=== PATIENT | female | born 1990 ===

== ENCOUNTER 2016-09-09 18:14 | Emergency (ER) | payer MEDICAID ==
[2016-09-09 18:14] VITALS: BMI 24.2
[2016-09-09 18:21] VITALS: BP 114/75; PULSE 82; TEMP 98.5; O2SAT 100
[2016-09-09] MEDS ORDERED: Albuterol-Ipratrop 3 mg / 0.5 (3 ml) UD IH STA (19:19)
[2016-09-09] MEDS ORDERED: Albuterol-Ipratrop 3 mg / 0.5 (3 ml) UD ONE (19:21)
--- NOTE | 2016-09-09 21:15 | C.PDOC ---
History Of Present Illness The patient, a 26 y/o female whose PMHx includes Lupus, presents to the ED for evaluation of cough and wheezing which began around 1 week ago. Patient states she has been diagnosed with Bronchitis for the third time this year. Patient states she is not taking any steroids or antibiotics at this time. Otherwise, she denies fever, chills, chest pain, and shortness of breath. Time Seen by Provider: 09/09/16 18:50 Chief Complaint (Nursing): Shortness Of Breath History Per: Patient History/Exam Limitations: no limitations Onset/Duration Of Symptoms: Other (1 week ) Current Symptoms Are (Timing): Still Present Quality: denies: "Pain" Exacerbating Factor(s): Coughing Current Respiratory Medications: See Home Med List Associated Symptoms: denies: Fever, Chills, Chest Pain Additional History Per: Patient Past Medical History Reviewed: Historical Data, Nursing Documentation, Vital Signs Vital Signs: Last Vital Signs Temp 98.5 F 09/09/16 18:19 Pulse 82 09/09/16 18:19 Resp 20 09/09/16 21:19 BP 114/75 09/09/16 18:19 Pulse Ox 100 09/09/16 21:15 - Medical History PMH: Bronchitis, Rheumatoid Arthritis Surgical History: Family History: States: No Known Family Hx - Social History Hx Tobacco Use: Yes Hx Alcohol Use: Yes (social) Hx Substance Use: No - Immunization History Hx Tetanus Toxoid Vaccination: No Hx Influenza Vaccination: No Hx Pneumococcal Vaccination: No Review Of Systems Except As Marked, All Systems Reviewed And Found Negative. Constitutional: Negative for: Fever, Chills Cardiovascular: Negative for: Chest Pain Respiratory: Positive for: Cough, Wheezing. Negative for: Shortness of Breath Physical Exam - Physical Exam Appears: Non-toxic, No Acute Distress Skin: Normal Color, Warm, Dry Head: Atraumatic, Normacephalic Eye(s): bilateral: Normal Inspection Ear(s): Bilateral: Normal Nose: Normal, No Discharge Oral Mucosa: Moist Throat: Normal, No Erythema, No Exudate Neck: Normal ROM, Supple Chest: Symmetrical, No Deformity, No Tenderness Cardiovascular: Rhythm Regular, No Murmur Respiratory: No Rales, No Rhonchi, Wheezing Back: Normal Inspection, No Vertebral Tenderness, No Paraspinal Tenderness Extremity: Normal ROM, Capillary Refill (less than 2 seconds ) Neurological/Psych: Oriented x3, Normal Speech, Normal Cognition Gait: Steady ED Course And Treatment O2 Sat by Pulse Oximetry: 100 (on RA) Pulse Ox Interpretation: Normal Progress Note: CXR ordered, results are unremarkable. Patient received Albuterol IH and prednisone PO. On reassessment, patient is resting comfortably , showing no signs of respiratory distress, and is stable for discharge. Patient is advised to follow up with PMD within 1-2 days for further evaluation. Reassessment Condition: Improved Disposition - Disposition Disposition: HOME/ ROUTINE Disposition Time: 21:12 Condition: GOOD Additional Instructions: Follow up with PMD within 1-2 days. Return to ED if feel worse. Prescriptions: Albuterol 0.083% [Albuterol Sulfate 3 Ml] 3 ml IH .Q4-6H #100 vial Levofloxacin [Levaquin] 500 mg PO DAILY #10 tablet predniSONE [predniSONE Tab] 2 tab PO DAILY #8 tab Promethazine HCl/Codeine [Prometh-Codein 6.25-10 mg/5 ml] 5 ml PO .Q4-6H #150 ml Albuterol HFA [Ventolin HFA 90 mcg/actuation (8 g)] 1 puff IH .Q4-6H #1 inhaler Instructions: Acute Bronchitis (ED) - Clinical Impression Clinical Impression: Bronchitis - PA / SPECIAL EVENTS DIRECTOR / Resident Statement MD/DO has reviewed & agrees with the documentation as recorded. - Scribe Statement The provider has reviewed the documentation as recorded by the Scribe (Taryn Waggoner) All medical record entries made by the Scribe were at my direction and personally dictated by me. I have reviewed the chart and agree that the record accurately reflects my personal performance of the history, physical exam, medical decision making, and the department course for this patient. I have also personally directed, reviewed, and agree with the discharge instructions and disposition.
[2016-09-09 21:20] VITALS: RESP 20
--- NOTE | 2016-09-10 09:23 | RAD ---
HISTORY: cough/wheezing COMPARISON: 03/26/2016 TECHNIQUE: Chest PA and lateral FINDINGS: LUNGS: No active pulmonary disease. PLEURA: No significant pleural effusion identified. No pneumothorax apparent. CARDIOVASCULAR: Normal. OSSEOUS STRUCTURES: No significant abnormalities. VISUALIZED UPPER ABDOMEN: Normal. OTHER FINDINGS: None. IMPRESSION: No active disease.
== END 2016-09-09 21:19 | disposition home or self-care (01) ==
LOC: C.ER 18:14
DX: J40 Bronchitis, not specified as acute or chronic (principal); Z72.0 Tobacco use

== ENCOUNTER 2017-05-27 11:05 | Emergency (ER) | payer MEDICAID ==
[2017-05-27 11:13] VITALS: BMI 24.4
[2017-05-27 11:18] VITALS: BP 101/65; PULSE 120; RESP 20; TEMP 98.5; O2SAT 98
[2017-05-27] MEDS ORDERED: guaiFENesin 100 mg/5 ml Syrup UD PO STA (11:44)
--- NOTE | 2017-05-27 11:46 | C.PDOC ---
History Of Present Illness 27 year old female presents to the ED for evaluation of sore throat and a dry, nonproductive cough which began yesterday. Patient has been taking DayQuil and NyQuil. She reports many sick contacts at home and denies fever, chills. Time Seen by Provider: 05/27/17 11:38 Chief Complaint (Nursing): Flu-like Symptoms History Per: Patient History/Exam Limitations: no limitations Onset/Duration Of Symptoms: Hrs Current Symptoms Are (Timing): Still Present Location Of Pain: Throat Associated Symptoms: Sore Throat, Cough. denies: Fever, Chills, Sputum Ear Symptoms: Bilateral: None Additional History Per: Patient Past Medical History Reviewed: Historical Data, Nursing Documentation, Vital Signs Vital Signs: Last Vital Signs Temp 98.5 F 05/27/17 11:13 Pulse 120 H 05/27/17 11:13 Resp 20 05/27/17 11:13 BP 101/65 05/27/17 11:13 Pulse Ox 98 05/27/17 15:54 - Medical History PMH: Bronchitis, Rheumatoid Arthritis Surgical History: Family History: States: Unknown Family Hx - Social History Hx Tobacco Use: Yes Hx Alcohol Use: Yes (social) Hx Substance Use: No - Immunization History Hx Tetanus Toxoid Vaccination: No Hx Influenza Vaccination: No Hx Pneumococcal Vaccination: No Review Of Systems Constitutional: Negative for: Fever, Chills ENT: Positive for: Throat Pain Respiratory: Positive for: Cough. Negative for: Sputum Physical Exam - Physical Exam Appears: Non-toxic, No Acute Distress Skin: Normal Color, Warm, Dry Head: Atraumatic, Normacephalic Eye(s): bilateral: Normal Inspection Ear(s): Bilateral: Normal Nose: Normal, No Discharge Oral Mucosa: Moist Throat: Normal, No Erythema, No Exudate Neck: Supple Chest: Symmetrical, No Deformity, No Tenderness Cardiovascular: Rhythm Regular, No Murmur Respiratory: Normal Breath Sounds, No Rales, No Rhonchi, No Wheezing Extremity: Normal ROM, Capillary Refill (less than 2 seconds ) Neurological/Psych: Oriented x3, Normal Speech, Normal Cognition Gait: Steady ED Course And Treatment - Laboratory Results Lab Interpretation: Normal (flu swab neg.) O2 Sat by Pulse Oximetry: 98 (on RA) Pulse Ox Interpretation: Normal Progress Note: motrin, robitussin PO. Flu swab ordered and resulted negative. Reevaluation Time: 12:45 Reassessment Condition: Improved Medical Decision Making Medical Decision Making: viral syndrome, clear lungs swab neg. no coughing in ED Disposition Doctor Will See Patient In The: Office Counseled Patient/Family Regarding: Studies Performed, Diagnosis - Disposition [facility]Outside[facility] Disposition: HOME/ ROUTINE Disposition Time: 11:45 Condition: GOOD Additional Instructions: continue dayquil/Nyquil agressively drink plenty of fluids no work/school until afebrile for 24 hours Instructions: Viral Syndrome (ED) Forms: [facility] (Turkish), Work Excuse - Clinical Impression Clinical Impression: Influenza-like illness - Scribe Statement The provider has reviewed the documentation as recorded by the Scribe (Taryn Waggoner) Provider Attestation: All medical record entries made by the Scribe were at my direction and personally dictated by me. I have reviewed the chart and agree that the record accurately reflects my personal performance of the history, physical exam, medical decision making, and the department course for this patient. I have also personally directed, reviewed, and agree with the discharge instructions and disposition.
[2017-05-27] MEDS ORDERED: guaiFENesin 100 mg/5 ml Syrup UD ONE (11:53)
== END 2017-05-27 13:17 | disposition home or self-care (01) ==
LOC: C.ER 11:05
DX: J11.1 Influenza due to unidentified influenza virus with other respiratory manifestations (principal); F17.210 Nicotine dependence, cigarettes, uncomplicated

== ENCOUNTER 2018-02-05 11:39 | Emergency (ER) | payer MEDICAID ==
[2018-02-05 11:39] VITALS: BMI 24.4
[2018-02-05 11:58] VITALS: PULSE 85; O2SAT 99
--- NOTE | 2018-02-05 12:53 | RAD ---
Date of service: 02/05/2018 HISTORY: Chest pain - especially with deep inspiration COMPARISON: Comparison chest 09/09/2017 TECHNIQUE: Chest PA and lateral FINDINGS: LUNGS: No active pulmonary disease. PLEURA: No significant pleural effusion identified. No pneumothorax apparent. CARDIOVASCULAR: Normal. OSSEOUS STRUCTURES: No significant abnormalities. VISUALIZED UPPER ABDOMEN: Normal. OTHER FINDINGS: None. IMPRESSION: No active disease.
[2018-02-05 12:58] LABS: BASO % 0.4 % (0.0-2.0); EOS # 0.1 K/uL (0.0-0.7); EOS % 0.7 % (0.0-4.0); HEMOGLOBIN 12.2 g/dL (11.0-16.0); LYMPH % 9.2 % (20.0-40.0); MEAN CELL VOLUME 82.2 fL (81.0-99.0); MEAN CORPUSCULAR HEMOGLOBIN 27.3 pg (27.0-31.0); MEAN CORPUSCULAR HGB CONC 33.2 g/dL (33.0-37.0); MEAN PLATELET VOLUME 8.9 fL (7.2-11.7); MONO # 0.6 K/uL (0.0-0.8); NEUT % 83.7 % (50.0-75.0); PLATELET COUNT 268 K/uL (130-400); RBC 4.47 Mil/uL (3.80-5.20); RED CELL DISTRIBUTION WIDTH 14.1 % (11.5-14.5); WHITE BLOOD COUNT 10.7 K/uL (4.8-10.8)
--- NOTE | 2018-02-05 13:00 | C.PDOC ---
History Of Present Illness 27 year old female with hx of lupus presents to ED complaining of left sided chest pain that radiates to the her neck. Patient states pain is constant and describes it as tightness and burning. Patient reports the pain is exacerbated when she is sitting up, takes deep breaths, and leans forward. Patient reports having similar symptoms prior, but last week the pain worsened. Patient has never seen a doctor for this and states she took naproxen with no relief of symptoms. Patient also reports taking plaquenil for her lupus. Patient also reports having recurrent episodes of bronchitis and has had a tubal ligation. Patient reports she smokes cigarettes and drinks on occasion. Denies fever, cough, shortness of breath, nausea, vomiting, weakness, numbness. PMD: [facility] Time Seen by Provider: 02/05/18 12:04 Chief Complaint (Nursing): ENT Problem History Per: Patient History/Exam Limitations: None Onset/Duration Of Symptoms: Days Current Symptoms Are (Timing): Still Present Past Medical History Reviewed: Historical Data, Nursing Documentation, Vital Signs Vital Signs: Last Vital Signs Temp 98.5 F 02/05/18 11:54 Pulse 85 02/05/18 11:54 Resp 16 02/05/18 11:54 BP 112/66 02/05/18 11:54 Pulse Ox 99 02/05/18 11:54 - Medical History PMH: Bronchitis, Rheumatoid Arthritis Surgical History: No Surg Hx, Family History: States: No Known Family Hx - Social History Hx Tobacco Use: Yes Hx Alcohol Use: Yes (social) Hx Substance Use: No - Immunization History Hx Tetanus Toxoid Vaccination: No Hx Influenza Vaccination: No Hx Pneumococcal Vaccination: No Review Of Systems Except As Marked, All Systems Reviewed And Found Negative. Constitutional: Negative for: Fever, Chills Cardiovascular: Positive for: Chest Pain (Left sided. Described as a tightness and burning pain. ) Respiratory: Negative for: Cough, Shortness of Breath Gastrointestinal: Negative for: Nausea, Vomiting Musculoskeletal: Positive for: Neck Pain (Pain from chest radiates to neck. ) Neurological: Negative for: Weakness, Numbness Physical Exam - Physical Exam Appears: Non-toxic, No Acute Distress Skin: Warm, Dry Head: Atraumatic, Normacephalic Eye(s): bilateral: Normal Inspection, PERRL, EOMI Oral Mucosa: Moist Neck: Supple Chest: Symmetrical Cardiovascular: Rhythm Regular, No Murmur Respiratory: Normal Breath Sounds, No Rales, No Rhonchi, No Wheezing Neurological/Psych: Oriented x3 ED Course And Treatment - Laboratory Results Result Diagrams: 02/05/18 12:55 02/05/18 12:55 ECG: Interpreted By Me ([address]/T changes), Viewed By Me O2 Sat by Pulse Oximetry: 99 (RA) Pulse Ox Interpretation: Normal - Other Rad Chest x-ray X-Ray: Interpreted by Me, Viewed By Me Interpretation: FINDINGS: LUNGS: No active pulmonary disease. PLEURA: No significant pleural effusion identified. No pneumothorax apparent. CARDIOVASCULAR: Normal. OSSEOUS STRUCTURES: No significant abnormalities. SUALIZED UPPER ABDOMEN: Normal. OTHER FINDINGS: None. IMPRESSION: No active disease. Medical Decision Making Medical Decision Making: Initial Impression: Chest pain. Differential diagnosis included pulmonary embolism, pneumonia, costochondritis, lupus related chest pain. Initial Plan: * EKG * Labs * Chest x-ray * Pepcid * Toradol * Urinalysis Progress Note: Pt feels better after Toradol and Pepcid. D-Dimer negative. Will d/c on ibuprofen and zantac. I explained it is important that pt follow up with [facility] on Wednesday or Wednesday. Lupus patients sometimes get pericarditis (which is why I will d/c on ibuprofen). [facility] can order echocardiogram as outpatient (since symptoms are mild at present). / Disposition Counseled Patient/Family Regarding: Diagnosis - Disposition Disposition: HOME/ ROUTINE Disposition Time: 14:57 Condition: IMPROVED Additional Instructions: Ms. Mac, thank you for letting us take care of you today. Return to the ER if your symptoms worsen, or if any problems. Take the medication listed below as prescribed. It is very important that you follow up with [facility] on Wednesday or Wednesday so you can be re-evaluated. Prescriptions: Ibuprofen [Motrin] 1 tab PO TID #45 tab Ranitidine HCl [Zantac] 1 tab PO BID #30 tablet Instructions: Pleuritic Chest Pain, Chest Pain (DC) Forms: [facility] (Wallisian) Print Language: MOROCCAN - POA Present On Arrival: None - Clinical Impression Clinical Impression: Chest pain - Scribe Statement The provider has reviewed the documentation as recorded by the Scribe Sahib Kaiser Provider Attestation: All medical record entries made by the Alvina were at my direction and personally dictated by me. I have reviewed the chart and agree that the record accurately reflects my personal performance of the history, physical exam, medical decision making, and the department course for this patient. I have also personally directed, reviewed, and agree with the discharge instructions and disposition.
[2018-02-05 13:19] LABS: ALB/GLOB RATIO 1.1 (1.0-2.1); ALBUMIN 4.2 g/dL (3.5-5.0); BLOOD UREA NITROGEN 19 mg/dL (7-17); CALCIUM 9.4 mg/dl (8.6-10.4); GFR NON-AFRICAN AMERICAN > 60
[2018-02-05 13:22] LABS: ALT/SGPT 28 U/L (9-52); AST/SGOT 26 U/L (14-36)
[2018-02-05 14:06] LABS: CK-MB < 0.22 ng/mL (0.0-3.38)
[2018-02-05 14:08] LABS: BASOPHIL 1 % (0-2); LYMPHOCYTE 15 % (20-40); MONOCYTE 4 % (0-10); NEUTROPHIL 80 % (50-75); PLATELET ESTIMATE NORMAL (NORMAL); TOTAL CELLS COUNTED 100
[2018-02-05 14:09] LABS: ANISOCYTOSIS SLIGHT
[2018-02-05 14:15] LABS: SQUAMOUS EPITHIAL 1 /hpf (0-5); URINE BILIRUBIN NEGATIVE (NEGATIVE); URINE BLOOD NEGATIVE (NEGATIVE); URINE CLARITY Clear (Clear); URINE COLOR Yellow (YELLOW); URINE GLUCOSE (UA) NORMAL (Normal); URINE LEUKOCYTE ESTERASE NEG Leu/uL (Negative); URINE PROTEIN NEGATIVE (NEGATIVE); URINE UROBILINOGEN NORMAL mg/dL (0.2-1.0)
[2018-02-05 14:58] VITALS: BP 103/68; RESP 17; TEMP 98.7
--- NOTE | 2018-02-07 22:05 | CARD ---
APPROVED REPORT Date of service: 02/05/2018 EKG Measurement Heart [id number] <Conclusion> Normal sinus rhythm Normal ECG
== END 2018-02-05 15:05 | disposition home or self-care (01) ==
LOC: C.ER 11:39
DX: R07.9 Chest pain, unspecified (principal); M32.9 Systemic lupus erythematosus, unspecified; F17.210 Nicotine dependence, cigarettes, uncomplicated
CPT/HCPCS: 71046; 80053; 81001; 82550; 82553; 84484; 85025; 85378; 93005; 96374; 96375; 99285; J1885